=== PATIENT | female | born 1930 | race Caucasian/White ===

== ENCOUNTER 2016-10-18 | Day surgery (SDC) | payer MEDICARE, OTHER ==
[~2016-10-18] MED LIST: ABILIFY5 M1 PO; AMARYL1 M1 PO; ASPIRIN81 M1 PO; COZAAR100 M1 PO; CRANBERRY500 M3 PO; DULCOLAX10 MG; FISH OIL 1,0001 EAC8 PO; GLUCOPHAGE1000 M1 PO; LASIX20 M1 PO; MELATONIN3 M4 PO; MILK OF MAGNESIA; MULTIVITAMIN; OS-CAL 500+D31 EAC1 PO; POTASSIUM CHLO20 ME3 PO; PROSOURCE PROT946 ML PO; SENOKOT8.6 M1 PO; TRAMADOL HCL E100 M2 PO; TYLENOL EXTRA500 M1 PO; ZOCOR20 M1 PO
[2017-01-04] MEDS ORDERED: TRAMADOL HCL E100 M1 PO (12:05)
[2017-01-04] MEDS ORDERED: POTASSIUM CHLO20 ME3 PO (12:06)
[2017-01-04] MEDS ORDERED: ZOCOR20 M1 PO (12:06)
[2017-01-04] MEDS ORDERED: LASIX20 M1 PO (12:06)
[2017-01-04] MEDS ORDERED: FISH OIL 11000 MG/CA PO (12:06)
[2017-01-04] MEDS ORDERED: CRANBERRY500 M2 PO (12:07)
[2017-01-04] MEDS ORDERED: COZAAR100 M1 PO (12:07)
[2017-01-04] MEDS ORDERED: AMARYL1 M1 PO (12:07)
[2017-01-04] MEDS ORDERED: OS-CAL 500+D31 EAC1 PO (12:08)
[2017-01-04] MEDS ORDERED: ASPIRIN EC81 MG PO (12:09)
[2017-01-04] MEDS ORDERED: ABILIFY5 M1 PO (12:09)
[2017-01-04] MEDS ORDERED: OCUVITE EYE +1 EACH PO (12:10)
[2017-01-04] MEDS ORDERED: MULTIPLE VITAM1 EAC4 PO (12:11)
[2017-01-04] MEDS ORDERED: GLUCOPHAGE1000 M1 PO (12:11)
[2017-01-04] MEDS ORDERED: SENNA-S TABLET1 EAC3 PO (12:13)
[2017-01-04] MEDS ORDERED: BISCOLAX10 MG PO (12:15)
[2017-01-04] MEDS ORDERED: NORCO 5-325 TA1 EACH PO (12:15)
[2017-01-04] MEDS ORDERED: FLEET ENEMA133 ML PO (12:16)
[2017-01-04] MEDS ORDERED: DEBROX15 M1 EACH EAR (12:18)
[2017-01-04] MEDS ORDERED: MELATIN3 MG PO (12:19)
[2017-01-04] MEDS ORDERED: GLUCAGON EMERGEN1 MG IM (12:19)
[2017-01-04] MEDS ORDERED: PHILLIPS'400 MG/51 PO (12:20)
[2017-01-04] MEDS ORDERED: TYLENOL EXTRA500 M1 PO (12:20)
[2017-01-04] MEDS ORDERED: PROSOURCE PLUS30 ML PO (12:21)
[2017-01-04] MEDS ORDERED: GABAPENTIN300 M1 PO (12:21)
[2017-01-04] MEDS ORDERED: [UNRECOGNIZED DRUG - OTHER] MM (12:23)
[2017-01-04] MEDS ORDERED: ASPERCREME 1035.4 GM TOP (12:23)
[2017-01-04] MEDS ORDERED: PROMETHAZINE HC25 M3 PO (12:24)
[2017-01-09] MEDS ORDERED: TRAMADOL HCL E100 M1 PO (10:16)
[2017-01-09] MEDS ORDERED: ULTRAM50 M1 PO (10:17)
[2017-01-09] MEDS ORDERED: MILK OF MAGNESIA PO (10:25)
[2017-01-09] MEDS ORDERED: TYLENOL325 M2 PO (10:28)
[2017-01-09] MEDS ORDERED: NORCO 5-325 TA1 EACH PO (10:43)
[2017-01-14] MEDS ORDERED: PERCOCET 5-3251 EACH PO (13:07)
[2017-01-14] MEDS ORDERED: CYCLOBENZAPRINE5 M1 PO (13:08)
[2017-01-14] MEDS ORDERED: NEURONTIN100 M1 PO (13:10)
[2017-03-27] MEDS ORDERED: COZAAR25 M1 PO (15:00)
[2017-04-10] MEDS ORDERED: COLACE100 M1 PO (15:08)
[2017-04-10] MEDS ORDERED: FEOSOL325 M1 PO (15:09)
[2017-04-10] MEDS ORDERED: ULTRAM50 M1 PO (15:10)
[2017-04-10] MEDS ORDERED: METOPROLOL TART25 M1 PO (15:10)
== END 2016-10-19 14:15 ==
DX: M14.671 Charcot's joint, right ankle and foot (principal); E78.00 Pure hypercholesterolemia, unspecified; E11.9 Type 2 diabetes mellitus without complications; F20.0 Paranoid schizophrenia; E11.621 Type 2 diabetes mellitus with foot ulcer; G89.29 Other chronic pain; H35.30 Unspecified macular degeneration; I10 Essential (primary) hypertension; L97.509 Non-pressure chronic ulcer of other part of unspecified foot with unspecified severity; M89.9 Disorder of bone, unspecified; M19.90 Unspecified osteoarthritis, unspecified site; M81.0 Age-related osteoporosis without current pathological fracture; N39.3 Stress incontinence (female) (male); Z66 Do not resuscitate; Z90.49 Acquired absence of other specified parts of digestive tract; Z90.710 Acquired absence of both cervix and uterus; Z98.890 Other specified postprocedural states; Z96.653 Presence of artificial knee joint, bilateral; Z82.49 Family history of ischemic heart disease and other diseases of the circulatory system; Z80.3 Family history of malignant neoplasm of breast; Z88.1 Allergy status to other antibiotic agents; Z88.0 Allergy status to penicillin; Z91.09 Other allergy status, other than to drugs and biological substances; Z79.84 Long term (current) use of oral hypoglycemic drugs; Z79.82 Long term (current) use of aspirin; Z79.899 Other long term (current) drug therapy